=== PATIENT | female | born 1945 | race Caucasian/White ===

== ENCOUNTER → 2024-10-01 | Outpatient (CLI) | payer MEDICARE, SELFPAY ==
[2024-10-01 08:56] LABS: Basophils # (Auto) 0.1 Thou/mm3 (0.0-0.2); Basophils % (Auto) 1 % (0-2.5); Eosinophils # (Auto) 0.4 Thou/mm3 (0.0-0.5); Eosinophils % (Auto) 6 % (0-10); Hemoglobin 14.8 g/dL (12.0-16.0); Immature Granulocytes % (Auto) 0 % (0-0); Immature Granulocytes Auto 0.01 Thou/mm3 (0.00-0.00); Lymphocytes # (Auto) 2.5 Thou/mm3 (1.0-4.8); Lymphocytes % (Auto) 42 % (10-50); Mean Corpuscular HGB Conc 34.4 g/dl (31.0-37.0); Mean Corpuscular Hemoglobin 30.3 pg (25.0-35.0); Mean Corpuscular Volume 88 fL (80-100); Monocytes # (Auto) 0.6 Thou/mm3 (0.0-0.8); Monocytes % (Auto) 10 % (0-12); Neutrophils # (Auto) 2.4 Thou/mm3 (1.8-7.7); Neutrophils % (Auto) 40 % (37-80); Nucleated Red Blood Cell % 0 /100 WBC (0); Platelet Count 260 Thou/mm3 (140-440); RDW Standard Deviation 44.4 fL (36.4-46.3); Red Blood Count 4.88 Miln/mm3 (4.00-5.20); White Blood Count 5.9 Thou/mm3 (3.6-11.0)
[2024-10-01 09:17] LABS: T4 (Thyroxine) 9.6 mcg/dL (4.5-10.9)
[2024-10-01 09:26] LABS: Alanine Aminotransferase 24 U/L (10-49); Albumin, Serum 4.4 gm/dL (3.4-4.8); Albumin/Globulin Ratio 1.9 (1.2-2.2); Alkaline Phosphatase 78 U/L (46-116); Anion Gap 4 (7-16); Aspartate Amino Transferase 29 U/L (0-34); BUN/Creatinine Ratio 19 Ratio (12-20); Bilirubin,Total 0.8 mg/dL (0.3-1.2); Blood Urea Nitrogen 17 mg/dL (9-23); Calcium 10.5 mg/dL (8.3-10.6); Calcium (Corrected) 10.5 mg/dL (8.5-10.1); Carbon Dioxide 32.1 mMol/L (20.0-31.0); Cardiac Risk Estimate 5.8 RATIO (3.7-5.6); Chloride 105 mMol/L (98-107); Cholesterol 250 mg/dL (132-200); Creatinine (Component) 0.9 mg/dL (0.6-1.3); Globulin 2.3 gm/dL (2.3-3.5); Glucose 119 mg/dL (74-106); HDL Cholesterol 43 mg/dL (40-60); LDL Cholesterol,Calculated 165 mg/dL (0-130); Osmolality,Calculated 283 (275-295); Potassium 3.9 mMol/L (3.4-5.1); Sodium 141 mMol/L (136-145); Thyroid Stimulating Hormone 3.48 uIU/mL (0.55-4.78); Total Protein 6.7 gm/dL (5.7-8.2); Triglycerides 210 mg/dL (30-150); eGFR > 60 See Note
== END | disposition home or self-care (01) ==
LOC: COPL 07:58
PROVIDERS: PCP Family Medicine; Referring Provider Family Medicine; Visit Provider Family Medicine
DX: I10 Essential (primary) hypertension (principal); K21.9 Gastro-esophageal reflux disease without esophagitis; R79.9 Abnormal finding of blood chemistry, unspecified
CPT/HCPCS: 36415; 80053; 80061; 84436; 84443; 85025

== ENCOUNTER → 2024-10-03 | Outpatient (CLI) | payer MEDICARE, SELFPAY ==
[2024-10-07 07:39] LABS: Fecal Globin Result NOT DETECTED (NOT DETECTED)
== END | disposition home or self-care (01) ==
LOC: SLDO 10:19
PROVIDERS: PCP Family Medicine; Referring Provider Family Medicine; Visit Provider Family Medicine
DX: Z12.11 Encounter for screening for malignant neoplasm of colon (principal)
CPT/HCPCS: 82274; G0328

== ENCOUNTER → 2024-10-09 | Outpatient (CLI) | payer MEDICARE, SELFPAY ==
--- NOTE | 2024-10-09 08:30 | XR_ITS ---
Examination: Screening digital mammography, bilateral Computer aided detection 3-D breast Tomosynthesis, bilateral Date and time of exam: October 09, 2024 0826 hours Compared to mammograms dating to February 14, 2020 Indication: Screening Technique: Nonmagnified MLO, CC views of the breasts to been obtained, reconstructed from 3-D Tomosynthesis images. R2 computer aided detection program utilized for evaluation of suspicious masses and/or abnormal calcifications. 3-D Tomosynthesis images obtained. Findings: Scattered areas of fibroglandular density Bilateral subcentimeter circumscribed nodules No interval suspicious masses Benign calcifications Impression: BI-RADS category II: Benign Findings. Recommend 1 year follow-up mammogram.
== END | disposition home or self-care (01) ==
PROVIDERS: PCP Family Medicine; Referring Provider Family Medicine; Visit Provider Family Medicine
DX: Z12.31 Encounter for screening mammogram for malignant neoplasm of breast (principal); R92.323 Mammographic fibroglandular density, bilateral breasts; R92.1 Mammographic calcification found on diagnostic imaging of breast
CPT/HCPCS: 77063; 77067

== ENCOUNTER 2024-11-29 23:40 | Emergency (ER) | payer MEDICARE, SELFPAY ==
[2024-11-29 23:41] VITALS: BMI 30.9
[2024-11-30 00:04] VITALS: BP 144/81; PULSE 106; RESP 20; TEMP 36.7; O2SAT 96
--- NOTE | 2024-11-30 00:09 | XR_ITS ---
Examination: CT abdomen and pelvis without contrast. Coronal 3-D reconstructions. Sagittal 2-D reconstructions. Date and time of exam:November 30, 2024 0042 hrs. Indications: Vomiting abdominal pain beginning 4:00 PM yesterday CTDI: vol (mGy): 10.3 DLP: (mGycm): 561 Technique: Axial images of the abdomen have been obtained, 3 mm slice thickness Intravenous contrast material has not been administered. Low dose protocols were performed. One or more of the following dose reduction techniques were used; automated exposure control, adjustment of the mA and/or KV according to patient size, use of iterative reconstruction technique. Findings: No focal liver or splenic lesion Absent gallbladder No pancreatic mass No renal or ureteral calculi, no hydronephrosis Mildly fluid distended small bowel loops 12 mm fat-containing umbilical hernia Normal appendix No diverticulitis Urinary bladder intact No pelvic mass Prominent osteopenia, advanced degenerative disc disease L2-L3, L4-L5, L5-S1 Impression: Small bowel ileus versus enteritis, clinical correlation advised
--- NOTE | 2024-11-30 00:11 | PD.EDRME ---
Rapid Medical Screening Exam RME Arrival date/time: 11/29/24 23:40 79-year-old female presents to the emergency room with a chief complaint of 8 out of 10 abdominal pain, nausea, vomiting x 1 day I have greeted and performed a focused initial assessment of this patient. A comprehensive ED assessment and evaluation of the patient, analysis of all test results, and completion of the medical decision making process will be conducted by additional ED providers. Chief Complaint: Abdominal Pain Vital signs: Vital Signs Temperature 98.0 F 11/30/24 00:04 Pulse Rate 106 H 11/30/24 00:04 Respiratory Rate 20 11/30/24 00:04 Blood Pressure 144/81 H 11/30/24 00:04 Pulse Oximetry (%) 96 11/30/24 00:04 Oxygen Delivery Method Room Air 11/30/24 00:04 Vital signs reviewed by provider: Yes
[2024-11-30] MEDS: MG HYD/AL HYD/SIME (Maalox Reg) SUSP 30 ML UDC PO (00:18)
[2024-11-30] MEDS: ONDANSETRON ODT 4 MG TABRAP PO (00:18)
[2024-11-30 00:23] LABS: Basophils % (Auto) 0 % (0-2.5); Eosinophils % (Auto) 0 % (0-10); Hematocrit 47.8 % (36.0-46.0); Hemoglobin 16.8 g/dL (12.0-16.0); Immature Granulocytes % (Auto) 0 % (0-0); Immature Granulocytes Auto 0.05 Thou/mm3 (0.00-0.00); Lymphocytes # (Auto) 0.8 Thou/mm3 (1.0-4.8); Lymphocytes % (Auto) 6 % (10-50); Mean Corpuscular HGB Conc 35.1 g/dl (31.0-37.0); Mean Corpuscular Hemoglobin 30.4 pg (25.0-35.0); Mean Corpuscular Volume 86 fL (80-100); Monocytes # (Auto) 0.5 Thou/mm3 (0.0-0.8); Monocytes % (Auto) 3 % (0-12); Neutrophils % (Auto) 90 % (37-80); Nucleated Red Blood Cell % 0 /100 WBC (0); Platelet Count 225 Thou/mm3 (140-440); RDW Standard Deviation 43.1 fL (36.4-46.3); Red Blood Count 5.53 Miln/mm3 (4.00-5.20); White Blood Count 13.4 Thou/mm3 (3.6-11.0)
[2024-11-30 00:41] LABS: Alanine Aminotransferase 31 U/L (10-49); Albumin, Serum 5.1 gm/dL (3.4-4.8); Albumin/Globulin Ratio 1.7 (1.2-2.2); Alkaline Phosphatase 72 U/L (46-116); Anion Gap 10 (7-16); Aspartate Amino Transferase 36 U/L (0-34); BUN/Creatinine Ratio 28 Ratio (12-20); Bilirubin,Total 1.1 mg/dL (0.3-1.2); Blood Urea Nitrogen 22 mg/dL (9-23); Calcium 10.6 mg/dL (8.3-10.6); Calcium (Corrected) 10.6 mg/dL (8.5-10.1); Chloride 100 mMol/L (98-107); Creatinine (Component) 0.8 mg/dL (0.6-1.3); Estimated Creatinine Clearance 60.9 mL/min (>60); Glucose 187 mg/dL (74-106); Lipase 41 U/L (12-53); Osmolality,Calculated 289 (275-295); Potassium 3.2 mMol/L (3.4-5.1); Sodium 141 mMol/L (136-145); Total Protein 8.1 gm/dL (5.7-8.2); eGFR > 60 See Note
--- NOTE | 2024-11-30 02:11 | PRELIM_ITS ---
CT scan of the abdomen and pelvis without intravenous contrast (axial sections with sagittal and darnell nal reformats); dated November 30, 2024 at 0042 hours Clinical History: Abdominal pain. Comparison: No ne.Findings:There is heterogeneous attenuation of the lung bases.The liver, pancreas, spleen, kidneys and adrenals are unremarkable on this noncontrast study. The gallbladder is surgically absent. A sma ll hiatal hernia is present. Prominent fluid filled small bowel loops. No evidence of bowel obstructi on. There are multiple colonic diverticula without evidence of diverticulitis. The appendix is within normal limits. There is no mesenteric or retroperitoneal adenopathy.The urinary bladder is unremarka ble. There is no free fluid or free air.A small fat-containing umbilical hernia is present. There is small fat containing left inguinal hernia. Degenerative changes are identified in the spine. Impressi on:No evidence of acute intra-abdominal or pelvic pathology.Prominent fluid filled small bowel loops, mild enteritis cannot be excluded. Recommend clinical correlation. Other findings as described above . Report Electronically Signed By: Laith Grace 11/30/2024 2:10:53 AM [EST]
[2024-11-30 03:04] VITALS: BP 154/79; PULSE 98; RESP 16; TEMP 36.5; O2SAT 94
[2024-11-30 03:45] LABS: Collection Type, Urine Clean Catch
[2024-11-30 03:56] LABS: Bilirubin,Urine Negative (Negative); Blood,Urine Negative (Negative); Clarity,Urine Clear (Clear/Hazy); Color,Urine Yellow (Lt Yel-Yel); Glucose, Urine Negative (Negative); Ketones,Urine 1+ (Negative); Leukocyte Esterase,Urine Negative (Negative); Nitrite,Urine Negative (Negative); Protein,Urine 1+ (Neg - Trace); RBC,Urine 3 /hpf (0-3); Specific Gravity,Urine 1.029 (1.001-1.035); Squamous Epithelial Cell,Urine 1 /hpf (0-5); Urobilinogen,Urine Negative mg/dL (0.0-1.0); WBC,Urine 2 /hpf (0-5)
--- NOTE | 2024-11-30 04:05 | PD.EDABDPN ---
ED Abdominal Pain RME/HPI General Chief Complaint: Abdominal Pain Stated complaint: VOMITING SINCE 4PM, UPPER ABDOMINAL PAIN Arrival date/time: 11/29/24 23:40 RME / HPI RME / HPI narrative: 11/29/24 23:40 79-year-old female presents to the emergency room with a chief complaint of 8 out of 10 abdominal pain, nausea, vomiting x 1 day I have greeted and performed a focused initial assessment of this patient. A comprehensive ED assessment and evaluation of the patient, analysis of all test results, and completion of the medical decision making process will be conducted by additional ED providers. ----- Dr. Lee?s Main ED Evaluation: 79yo female with a history of HTN presents to the ED for complaints of nausea and vomiting x 1600. Patient states she ate some rice and a tortilla at 1400, reporting she had more than 10 emetic episodes that started at 1600. She states her bowel movements were slightly more runny than normal and endorses having associated epigastric pain. She denies any fever, chills, runny nose, cough, sore throat or any other associated symptoms. Patient states she is on Prilosec at home. PSH includes hysterectomy 2/2 endometriosis and cholecystectomy. Related Data Home Medications ?Medication ?Instructions ?Recorded ?Confirmed cranberry concentrate-ascorbic 1 cap PO DAILY 02/14/21 02/14/21 acid 4,200 mg-20 mg capsule ezetimibe 10 mg tablet 10 mg PO QDAY 02/14/21 02/14/21 garlic 1,000 mg capsule 1,000 mg PO QDAY 02/14/21 02/14/21 hydrochlorothiazide 25 mg tablet 25 mg PO QDAY 02/14/21 02/14/21 oxybutynin chloride 5 mg tablet 5 mg PO BID 02/14/21 02/14/21 potassium 99 mg tablet 99 mg PO DAILY 02/14/21 02/14/21 sertraline 50 mg tablet 50 mg PO QDAY 02/14/21 02/14/21 Previous Rx's ?Medication ?Instructions ?Recorded ondansetron HCl 4 mg tablet 4 mg PO Q8H PRN nausea and 02/14/21 (Zofran) vomiting #7 tabs ondansetron 4 mg disintegrating 4 mg PO Q8H PRN nausea and 11/30/24 tablet vomiting #10 tabs Allergies Allergy/AdvReac Type Severity Reaction Status Date / Time shellfish derived Allergy Intermediate Gastrointestinal Verified 02/13/21 22:24 Upset adhesive tape Allergy Mild Blister Verified 02/13/21 22:24 Review of Systems Review of Systems Systems Reviewed: All systems reviewed, normal except as documented Narrative Review of Systems: Gen: No fever, no chills, no weight loss EYES: No discharge, no visual changes, no pain HEENT: No ear pain, no congestion, no sore throat PULM: No shortness of breath, no cough, no congestion CV: No chest pain, no dyspnea on exertion, no palpitations GI: + nausea, + vomiting, no diarrhea, + pain, no constipation : No frequency, no urgency, no dysuria Musc/skel: No joint pain, no back pain Skin: No rash. Warm and dry. Psyc: No hallucinations, no depression Heme/Lymph: No easy bleeding or bruising tendencies Neuro: No weakness, no headache Past Medical History Past Medical History NEUROLOGIC: Negative Neurological Disorders CARDIAC: Positive Cardiac Disorders, Hypertension and Hypotension; Negative Congestive Heart Failure RESPIRATORY: Negative Chronic Obstructive Pulmonary Disease (COPD) GASTROINTESTINAL: Positive Gastrointestinal Disorders and Gall Bladder Disease (gallstones) GENITOURINARY: Negative Genitourinary Disorders or Renal Disease REPRODUCTIVE: Positive Previous Pregnancies () MUSCULOSKELETAL: Negative Musculoskeletal Disorders ENDOCRINE: Negative Endocrine Disorders, Diabetes Mellitus Type 1 or Diabetes Mellitus Type 2 HEMATOLOGIC: Positive Blood Disorders and Anemia PSYCHO/SOCIAL: Positive Depression, Anxiety and Post Traumatic Stress Disorder OTHER HISTORY: Positive Hospitalization, Shingles, Chicken Pox and Measles; Negative Autoimmune Disease Family History FAMILY HISTORY: Positive Family Cardiac Disorders (dad born with unknown heart issues) and Family Cancer (grandmother unknown details); Negative Family Psychiatric Problems, Family Respiratory Disorders, Family Gastrointestinal Problems, Family Surgery or Family Anesthesia Reaction Surgical History SURGICAL: Positive Oral Surgery, Tonsillectomy, Abdominal Surgery (cholecystectomy) and Hysterectomy (total); Negative Joint Replacement Social History SMOKING STATUS: Never smoker ED Exam Narrative Physical exam: GENERAL APPEARANCE: AxOx4, generally well-appearing, no acute distress. HEENT: NC, AT. MMM. EOMI, clear conjunctiva, oropharynx clear. NECK: Supple without lymphadenopathy. No stiffness or restricted ROM. HEART: Normal rate and regular rhythm, normal S1/S1, no m/r/g LUNGS: CTAB, moving air well. No crackles or wheezes are heard. ABDOMEN: Soft, nontender, nondistended with good bowel sounds heard. BACK: No midline C/T/L spine pain or deformity, No CVAT, no obvious deformity. EXTREMITIES: Without cyanosis, clubbing or edema. MUSCULOSKELETAL: FROM of all major joints, no chest tenderness NEUROLOGICAL: Grossly nonfocal. Alert and oriented, moving all 4 extremities. CN not formally tested but appear grossly intact. Observed to ambulate with normal gait. Skin: Warm and dry without any rash. Course Quality Measures none Orders Category Date Time Status CT abdomen pelvis wo con Stat Exams 11/30/24 00:09 Completed CBC Stat Lab 11/30/24 00:16 Completed CMP [Comprehensive Metabolic Panel] Stat Lab 11/30/24 00:16 Completed Lipase Stat Lab 11/30/24 00:16 Completed UA [Urinalysis] Stat Lab 11/30/24 02:40 Completed Urine Culture Stat Lab 11/30/24 02:40 Received Ondansetron Odt [Zofran Odt] Med 11/30/24 00:09 Discontinued 4 mg PO X1 ONE mg Hyd/Al Hyd/Garcia Susp [Maalox Susp] Med 11/30/24 00:09 Discontinued 30 ml PO X1 ONE Vital Signs Vital signs: Vital Signs Temperature 98.0 F 11/30/24 00:04 Pulse Rate 106 H 11/30/24 00:04 Respiratory Rate 20 11/30/24 00:04 Blood Pressure 144/81 H 11/30/24 00:04 Pulse Oximetry (%) 96 11/30/24 00:04 Oxygen Delivery Method Room Air 11/30/24 00:04 Pulse ox is 96% on room air, which is normal according to my interpretation. Abdominal Pain MDM MDM Narrative MDM Narrative:: Scribe Attestation: 11/30/24 Neyda Tavarez am scribing for and in the presence of Dr. Lee. Patient data External records reviewed:: [facility] previous records (Per chart review, patient was seen here on 02/14/21 for acute hypokalemia.) Clinical information provided by:: patient Social determinants that could affect healthcare access:: none Patient has the following chronic illnesses:: HTN, gallstones How is presenting disease/condition affected by chronic disease/condition?: uneffected by Evaluation data The following diagnostics were reviewed and interpreted by me:: lab results and radiology exam(s) Lab and/or radiology exams considered but not ordered:: none Interpretation Summary: WBC count is elevated at 13.4, Potassium is slightly low at 3.2, Lipase is normal, UA shows 1+ protein and 1+ ketones, according to my interpretation. ----- [facility] Preliminary Report Draft Patient: CHEVY BROCK. Record#: [id number] Birthdate: 1945 Age/Sex: 79 / F Location: [facility] Attending Dr: Ordering Physician: Date of Service: Procedure(s): Accession Number(s): cc: ~ CT scan of the abdomen and pelvis without intravenous contrast (axial sections with sagittal and coronal reformats); dated November 30, 2024 at 0042 hours Clinical History: Abdominal pain. Comparison: None. Findings: There is heterogeneous attenuation of the lung bases. The liver, pancreas, spleen, kidneys and adrenals are unremarkable on this noncontrast study. The gallbladder is surgically absent. A small hiatal hernia is present. Prominent fluid filled small bowel loops. No evidence of bowel obstruction. There are multiple colonic diverticula without evidence of diverticulitis. The appendix is within normal limits. There is no mesenteric or retroperitoneal adenopathy. The urinary bladder is unremarkable. There is no free fluid or free air. A small fat-containing umbilical hernia is present. There is small fat containing left inguinal hernia. Degenerative changes are identified in the spine. Impression: No evidence of acute intra-abdominal or pelvic pathology. Prominent fluid filled small bowel loops, mild enteritis cannot be excluded. Recommend clinical correlation. Other findings as described above. Report Electronically Signed By: Laith Grace 11/30/2024 2:10:53 AM [EST] Medications / Prescriptions Medications or Prescriptions considered but not ordered:: none Medication administrations:: Medication Administration History Discontinued Medications Al Hydrox/Mg Hydrox/Simethicone (Mg Hyd/Al Hyd/Garcia (Maalox Reg) Susp 30 Ml Udc) 30 ml PO X1 ONE Stop: 11/30/24 00:10 Last Admin: 11/30/24 00:18 Dose: 30 ml Documented By: OA Ondansetron HCl (Ondansetron Odt 4 Mg Tabrap) 4 mg PO X1 ONE; Protocol Stop: 11/30/24 00:10 Last Admin: 11/30/24 00:18 Dose: 4 mg Documented By: IRINA see above Consultations Consultation(s) initiated? (list below): No Diagnosis Differential diagnosis abdominal pain: gastroenteritis, small bowel obstruction and other (food poisoning) Most likely diagnosis given after review of the tests above:: see below Admission Indicated Admission indicated?: not indicated Admission Request Was there a request for admission?: No Disposition Plan Disposition Plan: Discharge Discharge Attestation Discharge Attestation: The patient and all family members were given an opportunity to ask questions and understood the discharge instructions. Discharge instructions specifically effects, indications for sooner follow up or return to the emergency department, and the expected course of current diagnosis. Patient condition: Stable Discharge Plan Plan Patient Disposition: HOME (Self Care) Prescriptions/Referrals Prescriptions/Med Rec: New ondansetron 4 mg tablet,disintegrating 4 mg PO Q8H PRN (Reason: nausea and vomiting) Qty: 10 0RF No Action garlic 1,000 mg Capsule 1,000 mg PO QDAY potassium 99 mg Tablet 99 mg PO DAILY hydrochlorothiazide 25 mg Tablet 25 mg PO QDAY sertraline 50 mg Tablet 50 mg PO QDAY ezetimibe 10 mg Tablet 10 mg PO QDAY cranberry conc-ascorbic acid 4,200-20 mg Capsule 1 cap PO DAILY oxybutynin chloride 5 mg Tablet 5 mg PO BID ondansetron HCl [Zofran] 4 mg tablet 4 mg PO Q8H PRN (Reason: nausea and vomiting) Qty: 7 0RF Referrals: Murray Patel MD [Primary Care Provider] - In 1 week Problem List Clinical Impression: Gastroenteritis, Food poisoning Patient/Caregiver Discharge Instructions Education Materials: ED Food Poison Or Gastroenteritis Additional Instructions: [place] diet for the next 48 hours. Also you can take [id number] famotidine (Pepcid) 20 mg twice a day for the next 3 days. Follow-up with your primary care doctor in 3 to 5 days if symptoms or not improving. You can return to the emergency department sooner if symptoms worsen or if you notice any new, concerning issues. Print Language: Faroese Stand Alone Forms: [employer] Award Info., Patient Portal Info Letter
[2024-11-30 04:55] VITALS: BP 145/76; PULSE 83; RESP 16; O2SAT 93
== END 2024-11-30 04:56 | disposition home or self-care (01) ==
PROVIDERS: Nurse Practitioner Family; Emergency Provider Emergency Medicine; PCP Family Medicine
DX: A05.9 Bacterial foodborne intoxication, unspecified (principal); I10 Essential (primary) hypertension; Z90.710 Acquired absence of both cervix and uterus; Z90.49 Acquired absence of other specified parts of digestive tract
CPT/HCPCS: 36415; 74176; 80053; 81001; 83690; 85025; 87086; 99284; Q0162; A9270

== ENCOUNTER → 2025-01-06 | Outpatient (CLI) | payer MEDICARE, SELFPAY ==
[2025-01-06 09:02] LABS: Cardiac Risk Estimate 4.9 RATIO (3.7-5.6); Cholesterol 210 mg/dL (132-200); HDL Cholesterol 43 mg/dL (40-60); LDL Cholesterol,Calculated 129 mg/dL (0-130); Triglycerides 190 mg/dL (30-150)
[2025-01-06 10:37] LABS: Glucose Estimated Average 114 mg/dL (80-131); Hemoglobin A1C 5.6 % Hgb (4.8-6.0)
== END | disposition home or self-care (01) ==
LOC: COPL 07:53
PROVIDERS: PCP Family Medicine; Referring Provider Family Medicine; Visit Provider Family Medicine
DX: Z00.00 Encounter for general adult medical examination without abnormal findings (principal); R73.01 Impaired fasting glucose; E78.2 Mixed hyperlipidemia
CPT/HCPCS: 36415; 80061; 83036

== ENCOUNTER → 2025-07-08 | Outpatient (CLI) | payer MEDICARE, SELFPAY ==
[2025-07-08 08:49] LABS: Glucose Estimated Average 123 mg/dL (80-131); Hemoglobin A1C 5.9 % Hgb (4.8-6.0)
[2025-07-08 09:00] LABS: Basophils # (Auto) 0.1 Thou/mm3 (0.0-0.2); Basophils % (Auto) 1 % (0-2.5); Eosinophils # (Auto) 0.2 Thou/mm3 (0.0-0.5); Eosinophils % (Auto) 4 % (0-10); Hematocrit 43.7 % (36.0-46.0); Hemoglobin 14.9 g/dL (12.0-16.0); Immature Granulocytes Auto 0.01 Thou/mm3 (0.00-0.00); Lymphocytes # (Auto) 2.1 Thou/mm3 (1.0-4.8); Lymphocytes % (Auto) 38 % (10-50); Mean Corpuscular HGB Conc 34.1 g/dl (31.0-37.0); Mean Corpuscular Hemoglobin 30.5 pg (25.0-35.0); Mean Corpuscular Volume 90 fL (80-100); Monocytes # (Auto) 0.6 Thou/mm3 (0.0-0.8); Monocytes % (Auto) 11 % (0-12); Neutrophils # (Auto) 2.6 Thou/mm3 (1.8-7.7); Neutrophils % (Auto) 46 % (37-80); Nucleated Red Blood Cell # 0.00 Thou/mm3 (0.00-0.00); Nucleated Red Blood Cell % 0 /100 WBC (0); Platelet Count 256 Thou/mm3 (140-440); RDW Standard Deviation 43.9 fL (36.4-46.3); Red Blood Count 4.88 Miln/mm3 (4.00-5.20); White Blood Count 5.6 Thou/mm3 (3.6-11.0)
[2025-07-08 09:08] LABS: Alanine Aminotransferase 28 U/L (10-49); Albumin, Serum 4.0 gm/dL (3.4-4.8); Albumin/Globulin Ratio 1.9 (1.2-2.2); Alkaline Phosphatase 77 U/L (46-116); Anion Gap 11 (7-16); Aspartate Amino Transferase 31 U/L (0-34); BUN/Creatinine Ratio 21 Ratio (12-20); Bilirubin,Total 0.9 mg/dL (0.3-1.2); Blood Urea Nitrogen 17 mg/dL (9-23); Calcium 10.4 mg/dL (8.3-10.6); Calcium (Corrected) 10.4 mg/dL (8.5-10.1); Carbon Dioxide 28.1 mMol/L (20.0-31.0); Cardiac Risk Estimate 4.6 RATIO (3.7-5.6); Chloride 106 mMol/L (98-107); Cholesterol 206 mg/dL (132-200); Creatinine (Component) 0.8 mg/dL (0.6-1.3); Globulin 2.1 gm/dL (2.3-3.5); Glucose 119 mg/dL (74-106); HDL Cholesterol 45 mg/dL (40-60); LDL Cholesterol,Calculated 132 mg/dL (0-130); Osmolality,Calculated 291 (275-295); Potassium 4.1 mMol/L (3.4-5.1); Sodium 145 mMol/L (136-145); Total Protein 6.1 gm/dL (5.7-8.2); Triglycerides 146 mg/dL (30-150); eGFR > 60 See Note
== END | disposition home or self-care (01) ==
LOC: COPL 07:34
PROVIDERS: PCP Family Medicine; Referring Provider Family Medicine; Visit Provider Family Medicine
DX: I95.2 Hypotension due to drugs (principal); R42 Dizziness and giddiness; F33.1 Major depressive disorder, recurrent, moderate
CPT/HCPCS: 36415; 80053; 80061; 83036; 85025

== ENCOUNTER → 2025-10-13 | Outpatient (CLI) | payer MEDICARE, SELFPAY ==
--- NOTE | 2025-10-13 08:00 | XR_ITS ---
Examination: Screening digital mammography, bilateral Computer aided detection 3-D breast Tomosynthesis, bilateral Date and time of exam: October 13, 2025, 0753 hours, compared to mammograms dating to February 21, 2020 Indication: Screening Technique: Nonmagnified MLO, CC views of the breasts to been obtained, reconstructed from 3-D Tomosynthesis images. R2 computer aided detection program utilized for evaluation of suspicious masses and/or abnormal calcifications. 3-D Tomosynthesis images obtained. Findings: The breasts are heterogeneously dense No definite interval suspicious masses however the breast architecture is nodular Benign calcifications Impression: BI-RADS Category 0: Incomplete: Need additional imaging evaluation Recommend bilateral breast sonography follow-up
== END | disposition home or self-care (01) ==
LOC: CDIM 07:45
PROVIDERS: Referring Provider Family Medicine; Visit Provider Family Medicine
DX: Z12.31 Encounter for screening mammogram for malignant neoplasm of breast (principal); R92.8 Other abnormal and inconclusive findings on diagnostic imaging of breast
CPT/HCPCS: 77063; 77067

== ENCOUNTER → 2025-11-10 | Outpatient (CLI) | payer MEDICARE, SELFPAY ==
--- NOTE | 2025-11-10 15:00 | XR_ITS ---
Examination: Breast ultrasound complete, bilateral Date and time of exam: November 10, 2025, 1525 hours INDICATIONS: Family history of breast cancer, dense heterogeneously nodular breast architecture on mammogram October 13, 2025 Technique: Real-time grayscale ultrasonographic imaging bilateral breasts, including all 4 quadrants as well as nipple retroareolar and axillary regions. Findings: Sonographic images right and left breast demonstrate no cystic or solid masses IMPRESSION:: BI-RADS Category 1: Negative study
== END | disposition home or self-care (01) ==
PROVIDERS: PCP Family Medicine; Referring Provider Family Medicine; Visit Provider Family Medicine
DX: R92.313 Mammographic fatty tissue density, bilateral breasts (principal)
CPT/HCPCS: 76641